=== PATIENT | female | born 1985 | race African-American/Black ===

== ENCOUNTER 2021-01-17 12:48 | Emergency (ER) | payer MEDICAID ==
[~2021-01-17] VITALS: Ht 165.1 cm; Wt 70.0 kg
[2021-01-17] MEDS ORDERED: SODIUM CHLORIDE 0.9% 1,000 ML IV ONE (13:15)
[2021-01-17 13:37] LABS: CLARITY URINE CLEAR (CLEAR); COLOR URINE YELLOW (YELLOW); KETONES URINE NEGATIVE (NEGATIVE); LEUKOCYTE ESTERASE URINE TRACE (NEGATIVE); NITRITE URINE NEGATIVE (NEGATIVE); OCCULT BLOOD URINE 1+ (NEGATIVE); PROTEIN URINE NEGATIVE (NEGATIVE); SPECIFIC GRAVITY URINE 1.005 (1.005-1.030); UROBILINOGEN URINE 0.2 E.U./dL (0.2-1.0)
[2021-01-17] MEDS ORDERED: KETOROLAC 30MG/ML VIAL IV STA (13:56)
[2021-01-17] MEDS ORDERED: IBUP-2029 MT (16:06)
[2021-01-17] MEDS ORDERED: TAMS-11 MT (16:07)
[2021-01-17] MEDS ORDERED: T3 PO (16:07)
[2021-01-17] MEDS ORDERED: KETOROLAC 60MG/2ML VIAL IM ONE (16:30)
[2021-01-17] MEDS ORDERED: ACETAMINOPHEN WITH CODEINE 300/30MG TABLET PO ONE (16:30)
[2021-01-17 16:37] VITALS: BP 125/71
== END 2021-01-17 16:50 | disposition home or self-care (01) ==
LOC: ER 12:48
DX: N23 Unspecified renal colic (principal); Z98.890 Other specified postprocedural states
CPT/HCPCS: 74176; 81003; 81025; 93005; 99285; J7030; 99284